=== PATIENT | female | born 1980 | race Two or more races ===

== ENCOUNTER 2022-12-20 10:04 | Emergency (ER) | payer OTHER ==
[~2022-12-20] VITALS: Ht 154.9 cm; Wt 68.0 kg
[2022-12-20] MEDS ORDERED: OSEL75CA PO (11:09)
[2022-12-20] MEDS ORDERED: TUSNEL LIQUID178 ML PO (11:09)
== END 2022-12-20 12:48 | disposition home or self-care (01) ==
LOC: ER 10:04
DX: J11.1 Influenza due to unidentified influenza virus with other respiratory manifestations (principal)